=== PATIENT | female | born 1995 | race American Indian/Alaskan Native ===

== ENCOUNTER 2021-12-22 02:57 | Emergency (ER) | payer SELFPAY ==
[2021-12-22 03:02] VITALS: BP 121/81
[2021-12-22] MEDS ORDERED: PENICILLIN G BENZATHINE 1.2 MILLION UNIT/2 ML INJ IM ONE (04:32)
[2021-12-22] MEDS ORDERED: dexAMETHasone 4 MG/ML VIAL PO ONE (04:32)
--- NOTE | 2021-12-22 06:15 | Emergency Department Report ---
ED ENT HPI - General Chief complaint: Sore Throat Stated complaint: BODY HURT,THROAT HURT Time Seen by Provider: 12/22/21 04:31 Source: patient Mode of arrival: Ambulatory Limitations: No Limitations - History of Present Illness MD complaint: sore throat -: Gradual (3), days(s) Location: throat Severity: moderate Quality: aching, dull Consistency: constant Improves with: none Worsens with: swallowing, eating Associated Symptoms: sore throat. denies: tinnitus, hearing loss, rhinorrhea - Related Data Allergies Allergy/AdvReac Type Severity Reaction Status Date / Time No Known Allergies Allergy Verified 12/22/21 03:02 ED Dental HPI - General Chief complaint: Sore Throat Stated complaint: BODY HURT,THROAT HURT Time Seen by Provider: 12/22/21 04:31 Source: patient Mode of arrival: Ambulatory Limitations: No Limitations - Related Data Allergies Allergy/AdvReac Type Severity Reaction Status Date / Time No Known Allergies Allergy Verified 12/22/21 03:02 ED Review of Systems ROS: Stated complaint: BODY HURT,THROAT HURT Other details as noted in HPI Comment: All other systems reviewed and negative ED Physical Exam - General Limitations: No Limitations General appearance: alert, in no apparent distress - Head Head exam: Present: atraumatic, normocephalic - Eye Eye exam: Present: normal appearance - ENT ENT exam: Present: mucous membranes moist, other (Pharynx red swollen with swol davion tonsils with exudate. No drooling is present. Normal voice. Tonsillar lymphadenopathy is noted. Ears are clear) - Neck Neck exam: Present: normal inspection - Respiratory Respiratory exam: Present: normal lung sounds bilaterally. Absent: respiratory distress - Cardiovascular Cardiovascular Exam: Present: regular rate, normal rhythm. Absent: systolic murmur, diastolic murmur, rubs, gallop - GI/Abdominal GI/Abdominal exam: Present: soft, normal bowel sounds - Extremities Exam Extremities exam: Present: normal inspection - Back Exam Back exam: Present: normal inspection - Neurological Exam Neurological exam: Present: alert, oriented X3 - Psychiatric Psychiatric exam: Present: normal affect, normal mood - Skin Skin exam: Present: warm, dry, intact, normal color. Absent: rash ED Course Vital Signs 12/22/21 03:01 Temperature 98.2 F Pulse Rate 103 H Respiratory 18 Rate Blood Pressure 121/81 O2 Sat by Pulse 98 Oximetry ED Medical Decision Making - Medical Decision Making 26-year-old female with no history of any compromised nontoxic appearance patient is euvolemic with no trismus no airway compromise unable to tolerate p.o. given history and examination low suspicion for this presentation being caused by peritonsillar abscess, Taran, bacterial tracheitis, acute HIV, epiglottitis, retropharyngeal abscess. Treat accordingly emergency department with Bicillin LA in conjunction with Decadron Critical care attestation.: If time is entered above; I have spent that time in minutes in the direct care of this critically ill patient, excluding procedure time. ED Disposition Clinical Impression: Exudative pharyngitis Disposition: HOME / SELF CARE / HOMELESS Is pt being admited?: No Does the pt Need Aspirin: No Condition: Stable Instructions: Pharyngitis, Strep Throat, Adult, [id number], Sore Throat, [id number] Additional Instructions: He was seen by emerge from for pharyngitis and treatment was rendered in emergency department in the form of an an injection please start yourself on a soft or liquid diet for the next few days to improve the posterior pharynx discomfort. Referrals: [facility] [Provider Group] - 3-5 Days
== END 2021-12-22 07:59 | disposition home or self-care (01) ==
LOC: ED 02:57
DX: J02.9 Acute pharyngitis, unspecified (principal); Z79.899 Other long term (current) drug therapy
CPT/HCPCS: 96372; 99282; J0561; J1100